=== PATIENT | female | born 1965 | race Caucasian/White ===

== ENCOUNTER 2017-02-07 14:26 | Outpatient (CLI) | payer BC ==
[~2017-02-07] VITALS: Ht 162.6 cm; Wt 77.7 kg
[2017-02-07 14:32] VITALS: BP 150/70; PULSE 76; RESP 16; Ht 162.6 cm; Wt 77.7 kg
[2017-02-07] MEDS ORDERED: GABA300C16 PO (14:39)
[2017-02-07] MEDS ORDERED: HYDR4TAB18 PO (14:39)
[2017-02-07] MEDS ORDERED: ALPR0.5T PO (14:39)
[2017-02-07] MEDS ORDERED: ESCI5TAB PO (14:39)
[2017-02-07] MEDS ORDERED: BUPR-187 PO (14:39)
[2017-02-07] MEDS ORDERED: POLY17PO6 PO (14:39)
--- NOTE | 2017-02-07 15:24 | PN ---
Date/Time of Note Date/Time of Note DATE: 02/07/17 TIME: 15:16 Outpatient Progress Note Chief Complaint Abdominal pain/chronic pain/anemia/uterine fibroid HPI Abdominal pain/patient has abdominal pain, patient was recently hospitalized, patient has high-grade small bowel obstruction, patient able to eat well, but small amount, no nausea vomiting, no diarrhea, slightly better with Protonix per patient Patient had multiple abdominal surgery, patient has nephrectomy and splenectomy , and patient has history of adhesions,, Chronic pain syndrome/patient has chronic pain, patient has back pain, neuropathy pain, on medication, Anemia/no hematemesis or melena, no ecchymoses Uterine fibroid/patient has uterine fibroid, Patient has abdominal bruise, Review of Systems Const: No Fever, no chills, no Wt. loss, no Fatigue, normal appetite, no diaphoresis. Eyes: No pain, no discharge, no redness, no visual change, no foreign body. ENT: No pain, no bleeding, no congestion, no sore throat, no dysphagia, no discharge or rhinitis. Lymph: No adenopathy, no tender nodes, no lymphedema. Resp: No SOB, no cough, no sputum, no wheezing, no chest pain. CV: No chest pain, no palpitaions, no BAILEY, no PND, no edema. GI: Normal appetite, epigastric pain, no nausea, no vomiting, no diarrhea, no blood, no constipation. No abdominal distention, scar of previous surgery, : No frequency, no urgency, no dysuria, no hematuria, no flank pain, no discharge, no bleeding. Musc: No bone/joint pain, no back pain, no neck pain, no knee pain, no restricted ROM. Skin: No rash, no skin lesions, no erythema, no laceration, no bruising, no pruritus. Neuro: No ADLER, no dizziness, no syncope, no seizure, no focal-weakness. Endo: No polyuria, no polydypsia, no dry-skin, no temp-intolerance. Psych: No hallucinations, no depression, no anxiety, no suicidal ideation. Ext: No edema, no pain, no ulcer, no weakness. Physical Exam Vital Signs Date Time Temp Pulse Resp B/P Pulse Ox O2 Delivery O2 Flow Rate FiO2 02/07/17 14:32 98.2 76 16 150/70 96 Room Air 53 General Appearance: A 51 year-old female] who appears well-developed, well- nourished, in no acute distress. HEENT: Head normocephalic, atraumatic. Pupils equal, round, reactive to light and accommodate. Sclerae are no jaundice. Nasal turbinates pink without erythema or nasal discharge. Mucous membranes pink and moist without lesions. Oropharynx clear without any exudate or discharge. NECK: Supple. Trachea midline, No thyromegaly, No cervical lymphadenopathy, No mass, No carotid bruits, No JVD, Carotid pulses 2+ bilaterally. PULMONARY: Clear to auscultaion bilaterally, No retractions, Chest expansion symmetric bilaterally, no rales, no ronchi, no dulness on percussion. CARDIAC: Normal SI and S2, Regular rate and rythm, no murmur, gallop, or rub. GASTROINTESTINAL: Abdomen is soft, minimal abdominal discomfort,, Non Rigid, No distention, Positive bowel sounds x4 quadrants, Liver normal,. SKIN: Warm, dry, no rash, no bruise, no echmosis. Scar of previous abdominal surgery, EXTREMITIES: Bilateral lower extremities normal, no edema, no phlabitus, pulse palpable, no contracture. MUSCULOSKELETAL: Spine Normal, Non-tender, Normal range of motion, No swelling, no deformity, no clubbing, or cyanosis, the patient has no edema to bilateral lower extremities, dorsalis pedis pulses palpable bilaterally. NEUROLOGIC: The patient is awake, alert, oriented, responding to yes/no questions appropriately, moving all extremities, cranial nerve intact, normal strenght, normal power, normal coordination, normal gait. Allergies Coded Allergies: No Known Drug Allergies (Verified Allergy, Unknown, 02/07/17) PMH Small bowel obstruction/left nephrectomy/splenectomy/chronic pain syndrome/ hyperglycemia/anemia/uterine fibroid/ Social Hx No smoking no drinking, Assessment/Plan Impression Abdominal pain/small bowel obstruction resolving Chronic pain syndrome Anemia Uterine fibroid Status post left nephrectomy and splenectomy, Plan Patient education done about condition, Advised to eat small amounts frequently, and continue Protonix, Patient advised to follow with the primary care physician, Continue all medication, Increase activity and lose weight, Patient has multiple adhesions, patient may need surgery down the road in the future, patient explained, Medications Home Meds Reported Medications Alprazolam* (Xanax*) 0.5 Mg Tab, 0.5 MG PO QHS Y for ANXIETY, TAB 02/07/17 Bupropion Hcl* (Wellbutrin SR*) 100 Mg Tablet.sa, 100 MG PO BID, TAB.SA 02/07/17 Hydromorphone Hcl* (Dilaudid*) 4 Mg Tablet, 4 MG PO Q6H Y for PAIN, TAB 02/07/17 Polyethylene Glycol* (Miralax*) 17 Gm Powd.pack, 17 GM PO DAILY for CONSTIPATION , #30 PACKET 02/07/17 Gabapentin* (Gabapentin*) 300 Mg Capsule, 300 MG PO TID, #90 CAP 02/07/17 Escitalopram Oxalate* (Lexapro*) 5 Mg Tablet, 5 MG PO DAILY, #30 TAB 02/07/17 OSVALDO RUST MD February 07, 2017 15:24
== END 2017-02-10 15:28 | disposition home or self-care (01) ==
LOC: DCC 14:26
PROVIDERS: ATTEND Internal Medicine
DX: R10.9 Unspecified abdominal pain (principal); G89.4 Chronic pain syndrome; D64.9 Anemia, unspecified; D25.9 Leiomyoma of uterus, unspecified; Z90.81 Acquired absence of spleen; Z90.5 Acquired absence of kidney

== ENCOUNTER 2017-02-21 11:31 | Outpatient (CLI) | payer BC ==
[~2017-02-21] VITALS: Ht 162.6 cm; Wt 78.2 kg
[~2017-02-21 11:31] MED LIST: ALPR0.5T PO; BUPR-187 PO; ESCI5TAB PO; GABA300C16 PO; HYDR4TAB18 PO; POLY17PO6 PO
[2017-02-21 11:33] VITALS: BP 155/74; PULSE 80; RESP 16; Ht 162.6 cm; Wt 78.2 kg
--- NOTE | 2017-02-21 12:28 | PN ---
Date/Time of Note Date/Time of Note DATE: 02/21/17 TIME: 12:18 Outpatient Progress Note Chief Complaint UTI/abdominal pain/anemia/chronic pain syndrome HPI UTI/patient complains of frequency urgency, small amount of urine, and burning sensation, for last few days, no blood in the urine, no fever chill, no back pain, Abdominal pain/patient has slight abdominal discomfort, slightly better than before, patient was recently admitted with the high-grade small bowel obstruction, no abdominal distention, no cramps, pain more on the right side of the abdomen, Anemia/no hematemesis or melena, no ecchymoses bruises or bleeding, Chronic pain syndrome/patient has chronic pain syndrome, patient on pain medication, Review of Systems Const: No Fever, no chills, no Wt. loss, no Fatigue, normal appetite, no diaphoresis. Eyes: No pain, no discharge, no redness, no visual change, no foreign body. ENT: No pain, no bleeding, no congestion, no sore throat, no dysphagia, no discharge or rhinitis. Lymph: No adenopathy, no tender nodes, no lymphedema. Resp: No SOB, no cough, no sputum, no wheezing, no chest pain. CV: No chest pain, no palpitaions, no BAILEY, no PND, no edema. GI: Normal appetite, right-sided abdominal pain, no nausea, no vomiting, no diarrhea, no blood, no constipation. : Slight frequency, and urgency, and dysuria, and burning on urination, no hematuria, no flank pain, no discharge, no bleeding. Musc: No bone/joint pain, no back pain, no neck pain, no knee pain, no restricted ROM. Skin: No rash, no skin lesions, no erythema, no laceration, no bruising, no pruritus. Neuro: No ADLER, no dizziness, no syncope, no seizure, no focal-weakness. Endo: No polyuria, no polydypsia, no dry-skin, no temp-intolerance. Psych: No hallucinations, no depression, no anxiety, no suicidal ideation. Ext: No edema, no pain, no ulcer, no weakness. Physical Exam Vital Signs Date Time Temp Pulse Resp B/P Pulse Ox O2 Delivery O2 Flow Rate FiO2 02/21/17 11:33 98.3 80 16 155/74 96 Room Air General Appearance: A 51 year-old female who appears well-developed, well- nourished, in no acute distress. HEENT: Head normocephalic, atraumatic. Pupils equal, round, reactive to light and accommodate. Sclerae are no jaundice. Nasal turbinates pink without erythema or nasal discharge. Mucous membranes pink and moist without lesions. Oropharynx clear without any exudate or discharge. NECK: Supple. Trachea midline, No thyromegaly, No cervical lymphadenopathy, No mass, No carotid bruits, No JVD, Carotid pulses 2+ bilaterally. PULMONARY: Clear to auscultaion bilaterally, No retractions, Chest expansion symmetric bilaterally, no rales, no ronchi, no dulness on percussion. CARDIAC: Normal SI and S2, Regular rate and rythm, no murmur, gallop, or rub. GASTROINTESTINAL: Abdomen is soft, minimal right sided abdominal discomfort, scar of previous surgery,, Non Rigid, No distention, Positive bowel sounds x4 quadrants, Liver normal. SKIN: Warm, dry, no rash, no bruise, no echmosis. EXTREMITIES: Bilateral lower extremities normal, no edema, no phlabitus, pulse palpable, no contracture. MUSCULOSKELETAL: Spine Normal, Non-tender, Normal range of motion, No swelling, no deformity, no clubbing, or cyanosis, the patient has no edema to bilateral lower extremities, dorsalis pedis pulses palpable bilaterally. NEUROLOGIC: The patient is awake, alert, oriented, responding to yes/no questions appropriately, moving all extremities, cranial nerve intact, normal strenght, normal power, normal coordination, normal gait. Allergies Coded Allergies: No Known Drug Allergies (Verified Allergy, Unknown, 02/07/17) PMH No change Social Hx No change Family Hx No change Assessment/Plan Impression UTI/abdominal pain/anemia/chronic pain syndrome Plan Patient education done, patient increase activity slowly, patient to eat small amounts frequently, Lose weight, UA culture and sensitivity, patient explained that if any need for antibiotic will call, as soon as culture and sensitivity report available, Patient to follow with the primary care physician, and if the pain persist further follow-up with the surgery, Medications Home Meds Reported Medications Alprazolam* (Xanax*) 0.5 Mg Tab, 0.5 MG PO QHS Y for ANXIETY, TAB 02/07/17 Bupropion Hcl* (Wellbutrin SR*) 100 Mg Tablet.sa, 100 MG PO BID, TAB.SA 02/07/17 Hydromorphone Hcl* (Dilaudid*) 4 Mg Tablet, 4 MG PO Q6H Y for PAIN, TAB 02/07/17 Polyethylene Glycol* (Miralax*) 17 Gm Powd.pack, 17 GM PO DAILY for CONSTIPATION , #30 PACKET 02/07/17 Gabapentin* (Gabapentin*) 300 Mg Capsule, 300 MG PO TID, #90 CAP 02/07/17 Escitalopram Oxalate* (Lexapro*) 5 Mg Tablet, 5 MG PO DAILY, #30 TAB 02/07/17 OSVALDO RUST MD February 21, 2017 12:28
== END 2017-02-21 16:22 | disposition home or self-care (01) ==
LOC: DCC 11:31
PROVIDERS: ATTEND Internal Medicine
DX: N39.0 Urinary tract infection, site not specified (principal); D64.9 Anemia, unspecified; G89.4 Chronic pain syndrome

== ENCOUNTER 2017-04-15 06:22 | Day surgery (SDC) | payer BC ==
[~2017-04-15] VITALS: Ht 162.6 cm; Wt 76.2 kg
[~2017-04-15 06:22] MED LIST changes: -HYDR4TAB18 PO; +HYDR4TAB51 PO
[2017-04-15 07:43] VITALS: Ht 162.6 cm; Wt 76.2 kg
[2017-04-15] MEDS ORDERED: HYDR-902 PO (08:10)
[2017-04-15] MEDS ORDERED: PROPOFOL 20 ML ONE ×2 (08:45→09:28)
[2017-04-15] MEDS ORDERED: MIDAZOLAM 1 MG/ML 2 ML INJ ONE (08:45)
[2017-04-15] MEDS ORDERED: LIDOCAINE 2% (SDV) 5 ML INJ ONE (08:45)
[2017-04-15 08:48] VITALS: BP 117/72; PULSE 75; RESP 75
[2017-04-15 09:55] VITALS: BP 122/68; PULSE 68; RESP 24
--- NOTE | 2017-04-18 17:25 | GILP ---
DATE OF PROCEDURE: 04/15/2017 PROCEDURE PERFORMED: Esophagogastroduodenoscopy and biopsy. Colonoscopy. SURGEON: Marisela Pulido MD PREOPERATIVE DIAGNOSES: Chronic heartburn. Iron deficiency anemia. POSTOPERATIVE DIAGNOSES: Gastroesophageal reflux disease. Gastritis with erosions. Small ulcer on the gastric antrum and biopsies were taken for histopathology. Small bowel biopsies were taken to rule out celiac disease. Colonoscopy all the way to the cecum. Internal hemorrhoids. No colon neoplasm was identified. INDICATION: The patient is a 51-year-old female patient, who was noted to have iron deficiency anemia. She also had chronic heartburn not responding to therapy. The patient was scheduled for endoscopy and colonoscopy for further evaluation. The procedures and possible complications were well explained to the patient. She understood and consented to the procedures. DESCRIPTION OF PROCEDURE: Under influence of anesthesia, the gastroscope was carefully introduced into the esophagus, and under direct vision, it was advanced to the stomach, into the pylorus, into the duodenal bulb, and descending duodenum. FINDINGS: Esophagus. The patient had gastroesophageal reflux disease. Stomach. She had gastritis. She also had an ulcer in the gastric antrum and biopsies were taken for histopathology. Duodenum: Normal. Small bowel biopsies were taken to rule out RO celiac disease. DESCRIPTION OF PROCEDURE: The colonoscope was carefully introduced in the rectum, and under direct vision, it was advanced all the way to the cecum. FINDINGS: The patient had internal hemorrhoids. No colon neoplasm was identified. The patient tolerated the procedures very well. There was no complication from the procedures. At the end of the procedure she was awake with stable vital signs and she was discharged to the care of her family. IMPRESSION: Please see postop diagnoses. PLAN: Continue Nexium and Zantac. Await histopathology reports. Next screening colonoscopy in 10 years. Patient needs gynecologic evaluation for menorrhagia. Dictated By: MD KIRSTIN Kauffman/real/bjc /Document#: [id number]
== END 2017-04-15 16:20 | disposition home or self-care (01) ==
LOC: GIL 06:22
PROVIDERS: ATTEND Internal Medicine Gastroenterology
DX: R12 Heartburn (principal); K21.9 Gastro-esophageal reflux disease without esophagitis; D50.9 Iron deficiency anemia, unspecified; K64.8 Other hemorrhoids; K29.70 Gastritis, unspecified, without bleeding; K25.9 Gastric ulcer, unspecified as acute or chronic, without hemorrhage or perforation
CPT/HCPCS: 43239; 45378; 84703; 88305; 88312; J2250; Z7610